=== PATIENT | male | born 1960 | race Caucasian/White ===

== ENCOUNTER 2020-05-28 22:33 | Observation (INO) | payer OTHER ==
[~2020-05-28] VITALS: Ht 182.9 cm; Wt 98.5 kg
[2020-05-28 23:07] LABS: BASOPHILS ABSOLUTE AUTO 0.03 K/mm3 (0.00-0.23); BASOPHILS PERCENT AUTO 0 % (0-2); EOSINOPHILS ABSOLUTE AUTO 0.18 K/mm3 (0.00-0.68); EOSINOPHILS PERCENT AUTO 2 % (0-6); Hematocrit 49.1 % (37.0-53.0); Hemoglobin 16.4 g/dL (13.5-17.5); IMMATURE GRAN ABSOLUTE AUTO 0.04 K/mm3 (0.00-0.10); IMMATURE GRAN PERCENT AUTO 0 % (0-1); LYMPHOCYTES ABSOLUTE AUTO 1.74 K/mm3 (0.84-5.20); LYMPHOCYTES PERCENT AUTO 15 % (21-46); MONOCYTES ABSOLUTE AUTO 0.87 K/mm3 (0.16-1.47); MONOCYTES PERCENT AUTO 8 % (4-13); Mean Corpuscular HGB 27.6 pg (26.0-34.0); Mean Corpuscular HGB Conc 33.4 g/dL (31.5-36.5); Mean Corpuscular Volume 83 fL (80-100); Mean Platelet Volume 10.4 fL (9.1-12.4); NEUTROPHILS ABSOLUTE AUTO 8.72 K/mm3 (1.96-9.15); NEUTROPHILS PERCENT AUTO 75 % (41-73); Platelet Count 346 K/mm3 (150-400); RDW Coefficient Variation 12.4 % (11.7-14.2); RDW Standard Deviation 37.5 fL (35.1-46.3); Red Blood Cell Count 5.94 M/mm3 (4.30-5.90); White Blood Cell Count 11.58 K/mm3 (4.00-11.30)
[2020-05-28 23:23] LABS: Alanine Aminotransfer (ALT/SGP 34 U/L (12-78); Albumin, Blood 3.4 g/dL (3.4-5.0); Albumin/Globulin Ratio 0.8 (0.8-1.8); Alk Phos 94 U/L (50-136); Anion Gap 8 mmol/L (6-16); Aspartate Aminotrans (AST/SGOT 17 U/L (12-37); Bilirubin, Total 0.9 mg/dL (0.1-1.0); Blood Urea Nitrogen 13 mg/dL (8-24); Bun/Creatinine Ratio 14.1 (12.0-20.0); CO2, Blood 24 mmol/L (21-32); Calcium, Blood 8.7 mg/dL (8.5-10.1); Chloride, Blood 103 mmol/L (98-108); Creatinine, Blood 0.93 mg/dL (0.60-1.20); Globulin, Blood 4.1 g/dL (2.2-4.0); Glomerular Filtration Rate >60 (60-); Glucose, Blood 144 mg/dL (70-99); Potassium, Blood 3.8 mmol/L (3.5-5.5); Sodium, Blood 135 mmol/L (136-145); Total Protein, Blood 7.5 g/dL (6.4-8.2)
[2020-05-28 23:25] LABS: Troponin I <0.015 ng/mL (0.000-0.040)
[2020-05-29 03:28] LABS: Influenza A, PCR Negative (NEGATIVE); Influenza B, PCR Negative (NEGATIVE); Resp Syncytial Virus, PCR Negative (NEGATIVE); SARS-Cov-2 (COVID-19) PCR, MMC Negative (NEGATIVE)
--- NOTE | 2020-05-29 06:39 | NUR ---
SUMMARY RECEIVED ADMIT FROM RL [email or web address] PENDING POSSIBLE OR TODAY.
--- NOTE | 2020-05-29 08:29 | NUR ---
PAIN PAIN STARTED THIS MORNING AT THE BEGINNING OF SHIFT. NIGHT NURSE ADMIN 50MCG FENTANYL, DID NOT HELPED, PT STILL IN A LOT OF PAIN. CALLED AND NOTIFIED DR. MAE, DILAUDID 0.5-1MG ORDER. ADMNISTERED DILAUDID 0.5MG AT 0820. PAIN MED HELPED A LITTLE. DR. MAE IN THE ROOM TO SEE PT AT 0830.
--- NOTE | 2020-05-29 08:54 | NUR ---
CT SCAN PT TO IMAGING FOR CT SCAN ABD/PELV
--- NOTE | 2020-05-29 09:17 | NUR ---
PT RETURN FROM IMAGING AT 0915 PT REPORTS PAIN WORSEN. 03/11. ADMINISTERING 0.5MG DILAUDID.
--- NOTE | 2020-05-29 20:08 | NUR ---
SHIFT SUMMARY PT LAP NIGEL HAS BEEN CANCELED FOR TODAY. CAME IN TO SEE PT DISCUSS CT RESULT PLAN TO STAY A DAY FOR OBSERVATION/ABX TREATMENT AND PROTONIX. PT ALSO HAS ULCER. PAIN MANAGED WITH DILAUDID. FENTANYL IS NOT HELPING WITH PAIN THIS MORNING,PAIN MED SWITCH TO DILAUDID 1MG. PT REPORTS MINIMAL PAIN AFTER ADMINSTERING DILAUDID. TOLERATING CLEAR DIET DENIES N/V. PT IS VOIDING ADEQUATELY. PT DENIES PASSING FLATUS. CALL LIGHT W/IN REACH.
--- NOTE | 2020-05-30 04:42 | NUR ---
SHIFT SUMMARY PT IS A/O X4 AND IND IN ROOM. PT REPORTS VOIDING AND PASSING FLATUS, NO BM THIS SHIFT. STARTED CLEAR LIQUIDS AND TOLERATING WELL WITHOUT NAUSEA. PT TAKING 1MG DILAUDED IV PRN PER ORDER FOR PAIN. THIS SEEMS TO BE MANAGING PAIN WELL. PT HAS BEEN RESTING IN BED DURING THE SHIFT. CALL LIGHT IN REACH.
[2020-05-30] MEDS ORDERED: HYDR1TAB94 PO (11:09)
[2020-05-30] MEDS ORDERED: SUCR1 PO (11:10)
[2020-05-30] MEDS ORDERED: PANT40 PO (11:10)
--- NOTE | 2020-05-30 14:25 | NUR ---
DISCHARGE PT EDUCATED ON AND RECEIVED PRINTED DISCHARGE INSTRUCTIONS AND VERBALIZED AN UNDERSTANDING. HARD RX FOR NORCO GIVEN TO PT AND OTHER NEW RX FAXED TO [facility] PER PT REQUEST IV DC'D. PT GATHERED ALL PERSONAL BELONGINGS AND DISCHARGED HOME WITH NIECE AT SIDE. PER DR. MAE, PT CAN DISCHARGE HOME WITHOUT COLLECTING STOOL SAMPLE.
== END 2020-05-30 14:23 | disposition home or self-care (01) ==
LOC: ER 22:33 → SURS 22:34
PROVIDERS: Emergency Medicine; ADMIT Surgery
DX: K26.9 Duodenal ulcer, unspecified as acute or chronic, without hemorrhage or perforation (principal); F17.220 Nicotine dependence, chewing tobacco, uncomplicated; Z20.828 Contact with and (suspected) exposure to other viral communicable diseases; Z23 Encounter for immunization; Z79.899 Other long term (current) drug therapy; Z88.0 Allergy status to penicillin
CPT/HCPCS: 0241U; 74177; 76705; 80053; 83690; 84484; 85025; 93005; 93010; 96361; 96365; 96366; 96375; 96376; 99285-25; C9113; G0378; J0295; J1170; J2270; J2405; J3010; J7030; J7120; Q9967

== ENCOUNTER 2020-08-29 10:57 | Day surgery (SDC) | payer OTHER ==
[~2020-08-29] VITALS: Ht 182.9 cm; Wt 100.7 kg
[~2020-08-29 10:57] MED LIST: HYDR1TAB94 PO; PANT40 PO; SUCR1 PO
== END 2020-08-29 14:05 | disposition home or self-care (01) ==
LOC: ORSCSDS 10:57
PROVIDERS: Surgery
PROC: 0DB78ZX Excision of Stomach, Pylorus, Via Natural or Artificial Opening Endoscopic, Diagnostic (ICD-10-PCS; principal; 2020-08-29 13:00)
PROC: 0DB98ZX Excision of Duodenum, Via Natural or Artificial Opening Endoscopic, Diagnostic (ICD-10-PCS; principal; 2020-08-29 13:00)
PROC: 0DBN8ZX Excision of Sigmoid Colon, Via Natural or Artificial Opening Endoscopic, Diagnostic (ICD-10-PCS; principal; 2020-08-29 13:00)
PROC: 0DB58ZX Excision of Esophagus, Via Natural or Artificial Opening Endoscopic, Diagnostic (ICD-10-PCS; principal; 2020-08-29 13:00)
DX: Z12.11 Encounter for screening for malignant neoplasm of colon (principal); K29.80 Duodenitis without bleeding; B96.81 Helicobacter pylori [H. pylori] as the cause of diseases classified elsewhere; D12.5 Benign neoplasm of sigmoid colon; K20.90 Esophagitis, unspecified without bleeding; F17.220 Nicotine dependence, chewing tobacco, uncomplicated; Z79.899 Other long term (current) drug therapy
CPT/HCPCS: 88305; 88342; J2250; J2704; J7120

== ENCOUNTER 2023-09-23 18:16 | Emergency (ER) | payer OTHER ==
[~2023-09-23] VITALS: Ht 182.9 cm; Wt 99.8 kg
[2023-09-23 19:01] LABS: BASOPHILS ABSOLUTE AUTO 0.02 K/mm3 (0.00-0.23); BASOPHILS PERCENT AUTO 0 % (0-2); EOSINOPHILS PERCENT AUTO 2 % (0-6); Hematocrit 46.9 % (37.0-53.0); Hemoglobin 16.4 g/dL (13.5-17.5); IMMATURE GRAN ABSOLUTE AUTO 0.04 K/mm3 (0.00-0.10); IMMATURE GRAN PERCENT AUTO 0 % (0-1); LYMPHOCYTES ABSOLUTE AUTO 2.26 K/mm3 (0.84-5.20); LYMPHOCYTES PERCENT AUTO 23 % (21-46); MONOCYTES ABSOLUTE AUTO 0.65 K/mm3 (0.16-1.47); MONOCYTES PERCENT AUTO 7 % (4-13); Mean Corpuscular HGB 28.8 pg (26.0-34.0); Mean Corpuscular Volume 82 fL (80-100); Mean Platelet Volume 10.2 fL (9.1-12.4); NEUTROPHILS ABSOLUTE AUTO 6.52 K/mm3 (1.96-9.15); NEUTROPHILS PERCENT AUTO 67 % (41-73); Platelet Count 291 K/mm3 (150-400); RDW Coefficient Variation 12.5 % (11.7-14.2); RDW Standard Deviation 37.7 fL (35.1-46.3); Red Blood Cell Count 5.69 M/mm3 (4.30-5.90); White Blood Cell Count 9.69 K/mm3 (4.00-11.30)
[2023-09-23 19:21] LABS: Albumin, Blood 3.8 g/dL (3.4-5.0); Albumin/Globulin Ratio 0.9 (0.8-1.8); Bilirubin, Total 0.4 mg/dL (0.1-1.0); Bun/Creatinine Ratio 20.8 (12.0-20.0); Calcium, Blood 9.6 mg/dL (8.5-10.1); Creatinine, Blood 0.62 mg/dL (0.60-1.20); Globulin, Blood 4.4 g/dL (2.2-4.0); Potassium, Blood 4.5 mmol/L (3.5-5.5); Total Protein, Blood 8.2 g/dL (6.4-8.2)
[2023-09-23] MEDS ORDERED: Ketorolac Tromethamine 30mg Vial IV ONE (21:40)
[2023-09-23] MEDS ORDERED: NS 1,000 ML IV SCH (21:40)
[2023-09-23] MEDS ORDERED: Lidocaine 4% 1 Patch TOP ONE (21:40)
[2023-09-23] MEDS ORDERED: Acetaminophen 325 MG TABLET PO ONE (21:40)
[2023-09-23 23:30] VITALS: BP 139/79
== END 2023-09-23 23:37 | disposition home or self-care (01) ==
LOC: ER 18:16
PROVIDERS: Nurse Practitioner
DX: M54.6 Pain in thoracic spine (principal); Z88.0 Allergy status to penicillin; Z87.891 Personal history of nicotine dependence
CPT/HCPCS: 71046; 80053; 84484; 85025; 85379; 93005; 93010; 96361; 96374; 99284-25; A9270; J1885; J7030